=== PATIENT | female | born 1960 | race Caucasian/White ===

== ENCOUNTER 2020-04-11 21:30 | Emergency (ER) | payer OTHER ==
[~2020-04-11] VITALS: Ht 172.7 cm; Wt 61.2 kg
--- NOTE | ~2020-04-11 | EMS ---
[address] [address] EMS Patient Care Report Name: ARMANDO ZELAYA Room #: REG SHAYY Charles#: [id number] Admission: 04/11/20 Attend Phys: Discharge: Date of : 62 Report #: [id number] THIS REPORT FOR: //name// Report Transmitted: 04/11/2020 23:36 EMS Care Summary [place], [place]/[facility] Incident [id number] @ 04/11/2020 20:54 Incident Location [address] [place] [address] Patient ARMANDO ZELAYA Female, 60 Years 1960 Patient Address [id number] [place] [address] Patient History Asthma,Hypothyroidism, Patient Allergies Sulfa, Patient Medications Other, Chief Complaint N/V, DIZZY Disposition Transported No Lights/[place] Dis[place] Reason Sick Person Transported To [facility] Narrative RESPONDED TO SICK AT APARTMENT. [facility]ON [facility] TOOK COVID 19 PRECAUTIONS WHEN APPROACHING PT. PT FOUND SITTING ON FLOOR VOMITING. PT REPORTS SEVERE DIZZINESS [address] [address] EMS Patient Care Report Name: ARMANDO ZELAYA Room #: REG SHAYY Charles#: [id number] Admission: 04/11/20 Attend Phys: Discharge: Date of : 62 Report #: [id number] AND N/V THAT BEGAN AN HOUR AGO. PT DENIES ANY FEVER, SOA, OR OTHER FLU LIKE SYMPTOMS CURRENTLY. PT REPORTS BEING AROUND POSITIVE COVID 19 PT APPROXIMATELY 6 WEEKS AGO AND HAD FLU LIKE SYMPTOMS AT THAT TIME SO SHE SELF QUARANTINED BUT WAS NOT TESTED HERSELF. PT REPORTS N/V SECONDARY TO DIZZINESS BEGINNING ABOUT AN HOUR AGO. PT SAT ON COT AND CONTINUED TO DRY HEAVE. PT PLACED A SURGICAL MASK ON WHEN NOT ACTIVELY VOMITING. PT VITALS OBTAINED. IV ESTABLISHED AND PT GIVEN 4MG OF ZOFRAN VIA IV. PT TRANSPORTED TO [facility]. PT SCOOTED TO BED AND HAND RAILS UP. REPORT GIVEN TO NURSE. Initial Vitals @21:15P: 86,R: 18,BP: 133/72,SpO2: 100, @21:10P: 100,R: 18,BP: 171/74,Pain: 0/10,GCS: 15,Glucose: 128,CO: 0,SpO2: 100,Revised Trauma: 12, Assessments @21:05MENTAL:Person Oriented,Time Oriented,Place Oriented,Event Oriented,SKIN:HEENT:Head/Face: No Abnormalities,Neck/Airway: No Abnormalities,LUNG SOUNDS:General: Vomiting,General: Nausea,ABDOMEN:General: Vomiting,General: Nausea,PELVIS//GI:No Abnormalities,EXTREMITIES:Left Arm: No Abnormalities,Right Arm: No Abnormalities,Left Leg: No Abnormalities,Right Leg: No Abnormalities,PULSE:NEURO:No Abnormalities,@21:12MENTAL:Person Oriented,Time Oriented,Place Oriented,Event Oriented,SKIN:No Abnormalities,HEENT:Head/Face: No Abnormalities,Eyes: No Abnormalities,Neck/Airway: No Abnormalities,LUNG SOUNDS:General: Nausea,Left Upper: No Abnormalities,Right Upper: No Abnormalities,Left Lower: No Abnormalities,Right Lower: No Abnormalities,ABDOMEN:General: Nausea,Left Upper: No Abnormalities,Right Upper: No Abnormalities,Left Lower: No Abnormalities,Right Lower: No Abnormalities,PELVIS//GI:No Abnormalities,EXTREMITIES:Left Arm: No Abnormalities,Right Arm: No Abnormalities,Left Leg: No Abnormalities,Right Leg: No Abnormalities,PULSE:NEURO:No Abnormalities, Impression Vomiting Procedures @21:12Zofran - 4 Milligrams (mg) - Intravenous (IV)Response: Unchanged@21:10Saline Lock 3cc (20 ga) Site: Antecubital-RightResponse: UnchangedSucceeded@21:05ALS AssessmentResponse: UnchangedSucceeded Timeline 20:52,Call Received 20:52,Dispatch Notified 20:54,Dispatched 20:55,En Route 21:04,On Scene 21:05,[place] [address] EMS Patient Care Report Name: ARMANDO ZELAYA Room #: LUCA Charles#: [id number] Admission: 04/11/20 Attend Phys: Discharge: Date of : 62 Report #: [id number] 21:05,ALS Assessment,Response: UnchangedSucceeded, 21:10,BP: 171/74 M,PULSE: 100,RR: 18 R,SPO2: 100 Ox,ETCO2: ,B,PAIN: 0,GCS: 15, 21:10,Saline Lock 3cc 20 ga Site: Antecubital-Right,Response: UnchangedSucceeded, 21:12,Zofran - 4 Milligrams (mg) - Intravenous (IV),Response: Unchanged 21:13,Depart Scene 21:15,BP: 133/72 M,PULSE: 86,RR: 18 R,SPO2: 100 Ox,ETCO2: ,BG: ,PAIN: ,GCS: , 21:23,At Destination 21:38,Call Closed Disclaimer v1.1 Copyright 2020 [employer] This EMS Care Summary contains data elements from the applicable legal record (which may be displayed differently). It is designed to provide pertinent information for the following purposes: continuity of care, clinical quality, and state data reporting. The complete legal record is available to ED staff and administrators of the receiving hospital in [employer] [employer] Patient Tracker. All data is provided "as is."
[2020-04-11] MEDS ORDERED: ARMOUR THYROID90 M1 PO (21:42)
[2020-04-11] MEDS ORDERED: VENTOLIN HFA 1818 GM INH (21:42)
[2020-04-11 22:43] LABS: ABSOLUTE NEUTROPHILS 5.4 thou/uL (1.4-8.2); EOSINOPHILS 1.4 % (0.0-3.0); HEMATOCRIT 36.9 % (37.0-47.0); HEMOGLOBIN 12.8 gm/dL (12.0-15.0); LYMPHOCYTES 19.5 % (24.0-44.0); MCH 32.1 pg (26.0-34.0); MCHC 34.6 g/dL (28.0-37.0); MCV 92.8 fL (80.0-100.0); MONOCYTES 7.2 % (1.0-8.0); PLATELET COUNT 230 thou/uL (150-400); POLYS 70.9 % (36.0-66.0); RBC 3.97 mil/uL (4.20-5.00); WBC 7.7 thou/uL (4.0-11.0)
[2020-04-11 22:47] LABS: CREATININE 1.2 mg/dL (0.6-1.0); POTASSIUM 3.9 mmol/L (3.5-5.1)
[2020-04-11 23:32] LABS: LARGE PLATELETS OCCASIONAL
[2020-04-12] MEDS ORDERED: MECLIZINE HCL25 MG PO (05:36)
[2020-04-12] MEDS ORDERED: ZOFRAN ODT4 MG PO (05:36)
[2020-04-12 05:47] VITALS: BP 127/59
== END 2020-04-12 05:53 | disposition home or self-care (01) ==
LOC: ER 21:30
PROVIDERS: Emergency Medicine
DX: R42 Dizziness and giddiness (principal); R11.10 Vomiting, unspecified; Z88.2 Allergy status to sulfonamides; Z88.5 Allergy status to narcotic agent